=== PATIENT | male | born 1960 | race Caucasian/White ===

== ENCOUNTER 2024-07-05 12:43 | Emergency (ER) | payer OTHER ==
[2024-07-05 13:09] VITALS: TEMP 98.5
--- NOTE | 2024-07-05 14:44 | XRAY ---
Indication: Ascites. Informed consent obtained. Patient placed supine. Initial abdominal ultrasound performed for localization. Left lower abdominal wall was prepped and draped in sterile fashion. 1% lidocaine plain was used for local anesthesia. Tiny skin incision made. 5 [employer] paracentesis needle/catheter was then percutaneously inserted. Once fluid was aspirating, the outer catheter was then advanced with the inner needle removed. Catheter was then connected to a Vacutainer. Approximately 11.3 L of off-white colored fluid aspirated and was disposed of properly. Repeat sonogram demonstrates improvement with minimal residual. Catheter removed. Hemostasis achieved using digital pressure over the puncture site. Band-Aid applied over the puncture site. Postoperative instructions given. Patient return to ER. Impression: Technically successful ultrasound guided abdominal paracentesis for therapeutic purpose. No immediate complications or blood loss.
--- NOTE | 2024-07-05 14:46 | XRAY ---
Indication: Ascites. Abdominal distention. Ultrasound of abdomen demonstrates diffuse large ascites in all 4 quadrants. Paracentesis is pending.
[2024-07-05] MEDS ORDERED: Hydromorphone 1 mg/ml Injection ONE (15:00)
[2024-07-05] MEDS ORDERED: Zofran 4 MG/2 ML VIAL ONE (15:00)
[2024-07-05] MEDS: Zofran 4 MG/2 ML VIAL IV ONE (15:03)
[2024-07-05] MEDS: Hydromorphone 1 mg/ml Injection IV ONE (15:04)
[2024-07-05 15:17] LABS: Absolute Neutrophil Ct (ANC) 6.07 x10^3/uL (1.78-5.38); BASOPHIL % 0.3 % (0.2-1.2); Basophil (Absolute #) 0.02 x10^3/uL (0.01-0.08); Eosinophil % 0.1 % (0.8-7.0); Eosinophil (Absolute #) 0.01 x10^3/uL (0.04-0.54); Hematocrit 43.8 % (40.1-51.0); Hemoglobin 15.6 g/dL (13.7-17.5); IMMATURE GRAN # 0.02 x10^3u/L (0.001-0.031); IMMATURE GRAN % 0.3 % (0.001-0.429); Lymphocyte (Absolute #) 0.39 x10^3/uL (1.32-3.57); Lymphocytes % 5.8 % (21.8-53.1); Mean Cell Volume 97.6 fL (79.0-92.2); Mean Corpuscular Hemoglobin 34.7 pg (25.7-32.2); Mean Corpuscular Hgb Concent. 35.6 g/dL (32.3-36.5); Mean Platelet Volume 9.8 fL (9.4-12.4); Neutrophil % 90.5 % (34.0-67.9); Platelet Count 114 x10^3/uL (163-337); Red Blood Count 4.49 x10^6/uL (4.63-6.08); White Blood Count 6.7 x10^3/uL (4.23-9.07)
[2024-07-05 15:32] LABS: ALBUMIN 3.3 g/dL (3.5-5.0); ANION GAP 14.3 MEQ/L (5-15); BILIRUBIN,TOTAL 2.8 mg/dL (0.2-1.3); Calcium 9.5 mg/dL (8.4-10.2); Creatinine 1 0.69 mg/dL (0.66-1.25); EST GLOMERULAR FILTRATION RATE 104.6 ML/MIN; Potassium 4.7 mmol/L (3.5-5.1); Total Protein 6.8 g/dL (6.3-8.2)
[2024-07-05 16:43] LABS: Slide Review 1 YES
--- NOTE | 2024-07-05 17:02 | XRAY ---
Indication: Abdominal pain since May 2024. Cirrhosis with ascites. Status post same-day paracentesis. Multiple contiguous images obtained through the abdomen and pelvis using 80 cc Isovue 370 contrast. Comparison: None Lung bases clear. Heart not enlarged. Noncontrasted stomach and bowel loops appear nonobstructed. Colon demonstrates diffuse circumferential wall thickening either incomplete distention versus colitis. Cirrhotic liver with moderate abdominal/pelvic ascites and 14.4 cm splenomegaly. No free air. Remaining liver, gallbladder, pancreas, spleen, adrenal glands, kidneys, ureters, and bladder are unremarkable. Mild scattered aortoiliac calcifications. No AAA or pathologic retroperitoneal lymphadenopathy. Osseous structures intact with osteopenia, mild/moderate degenerative changes throughout spine, minimal dextroscoliosis centered at L1, and mild degenerative changes both hips. Incidental moderate right and small left fluid-filled inguinal hernias. Impression: 1. Diffuse colonic bowel wall thickening either incomplete distention versus colitis. 2. Chronic findings including cirrhotic liver with abdominal/pelvic ascites, splenomegaly, arteriosclerotic disease, chronic bony findings, and fluid filled bilateral inguinal hernias.
[2024-07-05] MEDS ORDERED: Levofloxacin 500MG/100ML D5W 500 MG/100 ML BAG IV ONE (17:37)
[2024-07-05] MEDS: Levofloxacin 500MG/100ML D5W 500 MG/100 ML BAG IV STA (17:38)
[2024-07-05] MEDS ORDERED: Flagyl 500 MG ONE (17:43)
[2024-07-05] MEDS: Flagyl 500 MG PO ONE (17:43)
[2024-07-05 18:07] VITALS: BP 92/64
[2024-07-05 18:12] VITALS: O2SAT 96
--- NOTE | 2024-07-05 18:12 | ERPHSYRPT ---
- History of Present Illness Time Seen by Provider: 07/05/24 14:30 Source: patient Exam Limitations: no limitations Patient Subjective Stated Complaint: C/O abdominal pain. Indicates he is scheduled for a paracentesis on 07/07/24. Triage Nursing Assessment: Patient arrived by ambulance. He is alert and oriented. Abdomen is distended and firm. Patient with s/s of pain; grimacing, moaning, restless. Timing/Duration: today Severity: mild Associated Symptoms: denies symptoms Allergies/Adverse Reactions: acetaminophen Adverse Reaction (Verified 07/05/24 15:03) Patient states he shouldn't take this due to his liver cirrohsis Home Medications: Folic Acid 1 mg [Folate 1 mg] 1 mg PO DAILY 07/05/24 [History] Furosemide 20 mg [Lasix 20 mg] 20 mg PO TID 07/05/24 [History] Lactulose [Constulose] 15 ml PO DAILY 07/05/24 [History] Midodrine HCl [Proamatine] 5 mg PO TIDWMEALS 07/05/24 [History] Hx Tetanus, Diphtheria Vaccination/Date Given: (Patient is unsure) Hx Influenza Vaccination/Date Given: No Hx Pneumococcal Vaccination/Date Given: No Immunizations Up to Date: (Patient is unsure) Travel Risk - International Travel Have you traveled outside of the country in past 3 weeks: No - Emerging Infectious Disease Are you exhibiting symptoms associated with any current EIDs: Yes Symptoms: Abdominal Pain - Review of Systems Eyes: No Symptoms Ears, Nose, & Throat: No Symptoms Respiratory: No Symptoms Cardiac: No Symptoms Abdominal/Gastrointestinal: Abdominal Pain Genitourinary Symptoms: No Symptoms Musculoskeletal: No Symptoms Skin: No Symptoms Neurological: No Symptoms Psychological: No Symptoms Endocrine: No Symptoms Hematologic/Lymphatic: No Symptoms - Past Medical History Pertinent Past Medical History: Yes Neurological History: No Pertinent History ENT History: No Pertinent History Respiratory History: No Pertinent History Endocrine Medical History: No Pertinent History Musculoskeletal History: Fractures GI Medical History: Cirrhosis Psycho-Social History: Depression - Past Surgical History Past Surgical History: Yes Other Surgical History: back surgery (2007) - Social History Smoking Status: Current every day smoker How long have you smoked: 17 y.o. Drug Use: none - Social Determinants of Health Will the patient participate in the screening: Declined to provide - Nursing Vital Signs Nursing Vital Signs: Initial Vital Signs Temperature 98.5 F 07/05/24 12:50 Pulse Rate 135 H 07/05/24 12:50 Respiratory Rate 20 07/05/24 12:50 Blood Pressure 127/87 07/05/24 12:50 O2 Sat by Pulse Oximetry 95 07/05/24 12:50 Pain Scale Pain Intensity 0 - Physical Exam General Appearance: no apparent distress Eye Exam: PERRL/EOMI Ears, Nose, Throat Exam: normal ENT inspection Neck Exam: normal inspection Respiratory Exam: normal breath sounds Cardiovascular Exam: regular rate/rhythm Gastrointestinal/Abdomen Exam: soft, tenderness (patient has mild diffuse tenderness and has no guarding or rigidity and has no peritoneal signs ) Neurologic Exam: alert, oriented x 3 Skin Exam: normal color SpO2: 96 Ordered Tests: Active Orders 24 hr Category Date Time Status IV Insertion STAT Care 07/05/24 14:45 Active ABDOMEN AND PELVIS W CONTRAST [CT] Stat Exams 07/05/24 14:45 Completed ABDOMINAL PARACENTESIS [US] Stat Exams 07/05/24 13:22 Completed Ultrasound Liver or Spleen [LIVER OR SPLEEN] [US] Stat Exams 07/05/24 13:10 Completed AMYLASE Stat Lab 07/05/24 15:09 Completed CBC W DIFF Stat Lab 07/05/24 15:09 Completed CMP Stat Lab 07/05/24 15:09 Completed ETHYL ALCOHOL Stat Lab 07/05/24 15:09 Completed LIPASE Stat Lab 07/05/24 15:09 Completed Lactic Acid Stat Lab 07/05/24 14:45 Completed Urine Triage Profile Stat Lab 07/05/24 Ordered Medication Summary Generic Name Dose Route Start Last Admin Trade Name Freq PRN Reason Stop Dose Admin Levofloxacin/Dextrose 500 mg in 100 mls @ 100 mls/hr 07/05/24 17:34 07/05/24 17:38 Levofloxacin 500mg/100ml D5w IV 07/05/24 18:33 100 mls/hr STAT STA 100 mls/hr Administration Discontinued Medications Generic Name Dose Route Start Last Admin Trade Name Freq PRN Reason Stop Dose Admin Hydromorphone HCl 1 mg 07/05/24 14:45 07/05/24 15:04 Hydromorphone 1 Mg/1ml Inj IV 07/05/24 14:46 1 mg STAT ONE Administration Hydromorphone HCl Confirm 07/05/24 15:00 Hydromorphone 1 Mg/1ml Inj Administered 07/05/24 15:01 Dose 1 mg .ROUTE .STK-MED ONE Levofloxacin/Dextrose Confirm 07/05/24 17:37 Levofloxacin 500mg/100ml D5w Administered 07/05/24 17:38 Dose 500 mg in 100 mls @ ud IV .STK-MED ONE Metronidazole 500 mg 07/05/24 17:36 07/05/24 17:43 Metronidazole 500 Mg Tablet PO 07/05/24 17:37 500 mg STAT ONE Administration Metronidazole Confirm 07/05/24 17:43 Metronidazole 500 Mg Tablet Administered 07/05/24 17:44 Dose 500 mg .ROUTE .STK-MED ONE Ondansetron HCl 4 mg 07/05/24 14:45 07/05/24 15:03 Ondansetron Hcl 4 Mg/2 Ml Vial IV 07/05/24 14:46 4 mg STAT ONE Administration Ondansetron HCl Confirm 07/05/24 15:00 Ondansetron Hcl 4 Mg/2 Ml Vial Administered 07/05/24 15:01 Dose 4 mg .ROUTE .STK-MED ONE Lab/Rad Data: Laboratory Result Diagrams 07/05/24 15:09 07/05/24 15:09 Laboratory Results 07/05/24 07/05/24 07/05/24 Range/Units 15:09 15:09 15:09 WBC 6.7 (4.23-9.07) x10^3/uL RBC 4.49 L (4.63-6.08) x10^6/uL Hgb 15.6 (13.7-17.5) g/dL Hct 43.8 (40.1-51.0) % MCV 97.6 H (79.0-92.2) fL MCH 34.7 H (25.7-32.2) pg MCHC 35.6 (32.3-36.5) g/dL RDW 13.0 (11.6-14.4) % Plt Count 114 L (163-337) x10^3/uL MPV 9.8 (9.4-12.4) fL Gran % 90.5 H (34.0-67.9) % Immature Gran % (Auto) 0.3 (0.001-0.429) % Nucleat RBC Rel Count 0.0 (0.00-0.2) % Eos # (Auto) 0.01 L (0.04-0.54) x10^3/uL Immature Gran # (Auto) 0.02 (0.001-0.031) x10^3u/L Absolute Lymphs (auto) 0.39 L (1.32-3.57) x10^3/uL Absolute Monos (auto) 0.20 L (0.30-0.82) x10^3/uL Absolute Nucleated RBC 0.00 (0.00-0.012) x10^3u/L Lymphocytes % 5.8 L (21.8-53.1) % Monocytes % 3.0 L (5.3-12.2) % Eosinophils % 0.1 L (0.8-7.0) % Basophils % 0.3 (0.2-1.2) % Absolute Granulocytes 6.07 H (1.78-5.38) x10^3/uL Basophils # 0.02 (0.01-0.08) x10^3/uL Sodium 135 (135-145) mmol/L Potassium 4.7 (3.5-5.1) mmol/L Chloride 105 (98-107) mmol/L Carbon Dioxide 20 L (22-30) mmol/L Anion Gap 14.3 (5-15) MEQ/L BUN 15 (9-20) mg/dL Creatinine 0.69 (0.66-1.25) mg/dL Estimated GFR 104.6 ML/MIN Glucose 109 H (74-106) mg/dL Lactic Acid (0.4-2.0) Calcium 9.5 (8.4-10.2) mg/dL Total Bilirubin 2.80 H (0.2-1.3) mg/dL AST 57 (17-59) U/L ALT 44 (0-50) U/L Alkaline Phosphatase 176 H (38-126) U/L Serum Total Protein 6.8 (6.3-8.2) g/dL Albumin 3.3 L (3.5-5.0) g/dL Amylase 63 (30-110) U/L Lipase 57 (23-300) U/L Ethyl Alcohol < 10 (0-10) mg/dL Slides for Path Review YES 07/05/24 Range/Units 14:45 WBC (4.23-9.07) x10^3/uL RBC (4.63-6.08) x10^6/uL Hgb (13.7-17.5) g/dL Hct (40.1-51.0) % MCV (79.0-92.2) fL MCH (25.7-32.2) pg MCHC (32.3-36.5) g/dL RDW (11.6-14.4) % Plt Count (163-337) x10^3/uL MPV (9.4-12.4) fL Gran % (34.0-67.9) % Immature Gran % (Auto) (0.001-0.429) % Nucleat RBC Rel Count (0.00-0.2) % Eos # (Auto) (0.04-0.54) x10^3/uL Immature Gran # (Auto) (0.001-0.031) x10^3u/L Absolute Lymphs (auto) (1.32-3.57) x10^3/uL Absolute Monos (auto) (0.30-0.82) x10^3/uL Absolute Nucleated RBC (0.00-0.012) x10^3u/L Lymphocytes % (21.8-53.1) % Monocytes % (5.3-12.2) % Eosinophils % (0.8-7.0) % Basophils % (0.2-1.2) % Absolute Granulocytes (1.78-5.38) x10^3/uL Basophils # (0.01-0.08) x10^3/uL Sodium (135-145) mmol/L Potassium (3.5-5.1) mmol/L Chloride (98-107) mmol/L Carbon Dioxide (22-30) mmol/L Anion Gap (5-15) MEQ/L BUN (9-20) mg/dL Creatinine (0.66-1.25) mg/dL Estimated GFR ML/MIN Glucose (74-106) mg/dL Lactic Acid 2.2 H (0.4-2.0) Calcium (8.4-10.2) mg/dL Total Bilirubin (0.2-1.3) mg/dL AST (17-59) U/L ALT (0-50) U/L Alkaline Phosphatase (38-126) U/L Serum Total Protein (6.3-8.2) g/dL Albumin (3.5-5.0) g/dL Amylase (30-110) U/L Lipase (23-300) U/L Ethyl Alcohol (0-10) mg/dL Slides for Path Review - Progress Progress Note: at this time patient was seen and evaluated for abdominal pain he informed me that he needs to have a pleurecentesis as he is scheduled to have 1 in a few days, He denies anyother complaints - he was reevaluated after his procedure and still complaining of pain - ct of the abd and pelvis was obtained - labs were obtained - he was given opiod analgesia and he feels better - he was updated with his results and informed of the need for antibiotics here and at home and the need to follow up with his primary care provider - he is to abstain from drinking alcohol 07/05/24 18:08 Medical Desision Making - Discussion of managment Reviewed:: Need for additional workup Agreed on:: need for follow-up - Departure Clinical Impression: Acute abdominal pain, Abdominal ascites, Colitis Condition: Stable Critical Care Time: No Referrals: SARAH ADORNO MD [Primary Care Provider] - Follow up/PCP as directed Instructions: Abdominal pain, Severe Abdominal Pain, Adult (DC) Additional Instructions: Keep your appointments. You have your next paracentesis scheduled for 07/12/24 at 1pm as [facility]. You are also scheduled to follow-up with Dr. Adorno on 07/13/24 at 2pm in the [place] office. Prescriptions: Metronidazole 500 mg [Flagyl 500 MG] 500 mg PO BID #14 tablet Levofloxacin [Levaquin 500 MG Tablet] 500 mg PO DAILY #7 tablet
[2024-07-05 18:21] VITALS: PULSE 112; RESP 18
== END 2024-07-05 18:59 | disposition home or self-care (01) ==
LOC: ED 12:43
DX: R10.9 Unspecified abdominal pain (principal); R18.8 Other ascites; K52.9 Noninfective gastroenteritis and colitis, unspecified; Z79.899 Other long term (current) drug therapy; Z72.0 Tobacco use
CPT/HCPCS: 36000; 36415; 49083; 74177; 76705; 80053; 82077; 82150; 83605; 83690; 85025; 96365; 96374; 96375; 99284; J1171; J1956; J2405; A9270-GY

== ENCOUNTER 2024-07-20 09:15 | Emergency (ER) | payer OTHER ==
--- NOTE | 2024-07-20 09:23 | ERPHSYRPT ---
- History of Present Illness Time Seen by Provider: 07/20/24 09:21 Source: patient Physician History: 63-year-old male presents to our ED via EMS history of alcoholic cirrhosis recurrent ascites presents to our ED with abdominal distention. Patient receives a paracentesis weekly. Patient's last paracentesis was last . His next paracentesis is scheduled for this coming in 2 days. Patient is here as he is accumulated ascitic fluid in the interim. Patient complaining of abdominal discomfort secondary to distention. No trauma no fever no nausea no vomiting no diarrhea no rash. Symptoms are mild to moderate in intensity. Patient attributes his symptoms to needing to be "drained". Patient otherwise feels well. Patient states he does not have a GI physician that he follows. Patient voices no other complaints or concerns at this time. Portions of this note were created with voice recognition technology. There may be grammatical, spelling, punctuation or sound alike errors Timing/Duration: today Severity: moderate Modifying Factors: Improves With: nothing Associated Symptoms: denies symptoms Allergies/Adverse Reactions: acetaminophen Adverse Reaction (Verified 07/05/24 15:03) Patient states he shouldn't take this due to his liver cirrohsis Home Medications: Folic Acid 1 mg [Folate 1 mg] 1 mg PO DAILY 07/05/24 [History] Furosemide 20 mg [Lasix 20 mg] 20 mg PO TID 07/05/24 [History] Lactulose [Constulose] 15 ml PO DAILY 07/05/24 [History] Midodrine HCl [Proamatine] 5 mg PO TIDWMEALS 07/05/24 [History] Hx Tetanus, Diphtheria Vaccination/Date Given: (Patient is unsure) Hx Influenza Vaccination/Date Given: No Hx Pneumococcal Vaccination/Date Given: No Travel Risk - Emerging Infectious Disease Are you exhibiting symptoms associated with any current EIDs: Yes Symptoms: Abdominal Pain - Review of Systems Constitutional: No Symptoms, No Fever, No Chills Eyes: No Symptoms Ears, Nose, & Throat: No Symptoms Respiratory: No Symptoms, No Cough, No Dyspnea Cardiac: No Symptoms, No Chest Pain, No Edema, No Syncope Abdominal/Gastrointestinal: No Symptoms, No Abdominal Pain, No Nausea, No Vomiting, No Diarrhea Genitourinary Symptoms: No Symptoms, No Dysuria Musculoskeletal: No Symptoms, No Back Pain, No Neck Pain Skin: No Symptoms, No Rash Neurological: No Symptoms, No Dizziness, No Focal Weakness, No Sensory Changes Psychological: No Symptoms Endocrine: No Symptoms Hematologic/Lymphatic: No Symptoms Immunological/Allergic: No Symptoms All Other Systems: Reviewed and Negative - Past Medical History Pertinent Past Medical History: Yes Neurological History: No Pertinent History ENT History: No Pertinent History Respiratory History: No Pertinent History Endocrine Medical History: No Pertinent History Musculoskeletal History: Fractures GI Medical History: Cirrhosis Psycho-Social History: Depression - Past Surgical History Past Surgical History: Yes Other Surgical History: back surgery (2007) - Social History Smoking Status: Current every day smoker How long have you smoked: 17 y.o. Drug Use: none - Social Determinants of Health Will the patient participate in the screening: Declined to provide - Nursing Vital Signs Nursing Vital Signs: Initial Vital Signs Temperature 98.1 F 07/20/24 09:20 Pulse Rate 120 H 07/20/24 09:20 Respiratory Rate 16 07/20/24 09:20 Blood Pressure 124/84 07/20/24 09:20 O2 Sat by Pulse Oximetry 99 07/20/24 09:20 Pain Scale Pain Intensity 0 - Physical Exam General Appearance: no apparent distress, alert Eye Exam: PERRL/EOMI, eyes nml inspection Ears, Nose, Throat Exam: normal ENT inspection, TMs normal, pharynx normal, moist mucous membranes Neck Exam: normal inspection, non-tender, supple, full range of motion Respiratory Exam: normal breath sounds, lungs clear, No respiratory distress Cardiovascular Exam: regular rate/rhythm, normal heart sounds, normal peripheral pulses Gastrointestinal/Abdomen Exam: soft, normal bowel sounds, No tenderness, No mass Back Exam: normal inspection, normal range of motion, No CVA tenderness, No vertebral tenderness Extremity Exam: normal inspection, normal range of motion, pelvis stable Neurologic Exam: alert, oriented x 3, cooperative, normal mood/affect, sensation nml, No motor deficits Skin Exam: normal color, warm, dry, No rash Lymphatic Exam: No adenopathy SpO2 Interpretation: normal SpO2: 99 O2 Delivery: Room Air - Course Nursing assessment & vital signs reviewed: Yes Ordered Tests: Active Orders 24 hr Category Date Time Status IV Insertion STAT Care 07/20/24 09:16 Active BLOOD CULTURE Stat Lab 07/20/24 13:26 Received CBC W DIFF Stat Lab 07/20/24 09:30 Completed CMP Stat Lab 07/20/24 09:30 Completed LIPASE Stat Lab 07/20/24 09:30 Completed TROPONIN Q4H Lab 07/20/24 09:30 Completed TROPONIN Q4H Lab 07/20/24 12:40 Completed UA W/RFX UR CULTURE Stat Lab 07/20/24 11:28 Completed Medication Summary Generic Name Dose Route Start Last Admin Trade Name Freq PRN Reason Stop Dose Admin Sodium Chloride 1,000 mls @ 100 mls/hr 07/20/24 13:00 07/20/24 13:39 Sodium Chloride 0.9% 1000 Ml IV 08/19/24 12:59 100 mls/hr .Q10H KOLTON Administration Discontinued Medications Generic Name Dose Route Start Last Admin Trade Name Freq PRN Reason Stop Dose Admin Morphine Sulfate 4 mg 07/20/24 10:19 07/20/24 10:25 Morphine Sulfate 4 Mg/Ml Injection IV 07/20/24 10:20 4 mg STAT ONE Administration Morphine Sulfate Confirm 07/20/24 10:23 Morphine Sulfate 4 Mg/Ml Injection Administered 07/20/24 10:24 Dose 4 mg .ROUTE .STK-MED ONE Morphine Sulfate 4 mg 07/20/24 17:56 07/20/24 18:00 Morphine Sulfate 4 Mg/Ml Injection IV 07/20/24 17:57 4 mg STAT ONE Administration Morphine Sulfate Confirm 07/20/24 17:59 Morphine Sulfate 4 Mg/Ml Injection Administered 07/20/24 18:00 Dose 4 mg .ROUTE .STK-MED ONE Ondansetron HCl 4 mg 07/20/24 10:19 07/20/24 10:25 Ondansetron Hcl 4 Mg/2 Ml Vial IV 07/20/24 10:20 4 mg STAT ONE Administration Ondansetron HCl Confirm 07/20/24 10:23 Ondansetron Hcl 4 Mg/2 Ml Vial Administered 07/20/24 10:24 Dose 4 mg .ROUTE .STK-MED ONE Lab/Rad Data: Laboratory Result Diagrams 07/20/24 09:30 07/20/24 09:30 Laboratory Results 07/20/24 07/20/24 07/20/24 Range/Units 12:40 11:28 09:30 WBC (4.23-9.07) x10^3/uL RBC (4.63-6.08) x10^6/uL Hgb (13.7-17.5) g/dL Hct (40.1-51.0) % MCV (79.0-92.2) fL MCH (25.7-32.2) pg MCHC (32.3-36.5) g/dL RDW (11.6-14.4) % Plt Count (163-337) x10^3/uL MPV (9.4-12.4) fL Gran % (34.0-67.9) % Immature Gran % (Auto) (0.001-0.429) % Nucleat RBC Rel Count (0.00-0.2) % Eos # (Auto) (0.04-0.54) x10^3/uL Immature Gran # (Auto) (0.001-0.031) x10^3u/L Absolute Lymphs (auto) (1.32-3.57) x10^3/uL Absolute Monos (auto) (0.30-0.82) x10^3/uL Absolute Nucleated RBC (0.00-0.012) x10^3u/L Lymphocytes % (21.8-53.1) % Monocytes % (5.3-12.2) % Eosinophils % (0.8-7.0) % Basophils % (0.2-1.2) % Absolute Granulocytes (1.78-5.38) x10^3/uL Basophils # (0.01-0.08) x10^3/uL Sodium (135-145) mmol/L Potassium (3.5-5.1) mmol/L Chloride (98-107) mmol/L Carbon Dioxide (22-30) mmol/L Anion Gap (5-15) MEQ/L BUN (9-20) mg/dL Creatinine (0.66-1.25) mg/dL Estimated GFR ML/MIN Glucose (74-106) mg/dL Calcium (8.4-10.2) mg/dL Total Bilirubin (0.2-1.3) mg/dL AST (17-59) U/L ALT (0-50) U/L Alkaline Phosphatase (38-126) U/L Troponin I 0.017 0.023 (0.000-0.033) ng/mL Serum Total Protein (6.3-8.2) g/dL Albumin (3.5-5.0) g/dL Lipase (23-300) U/L Urine Color Dark Yellow (Yellow) Urine Appearance Cloudy A (Clear) Urine pH 5.5 (4.6-8.0) Ur Specific [place] 1.020 (1.005-1.030) Urine Protein Trace A (Negative) Urine Glucose (UA) Negative (Negative) mg/dL Urine Ketones Negative (Negative) Urine Blood Negative (Negative) Urine Nitrite Negative (Negative) Urine Bilirubin Small A (Negative) Urine Urobilinogen 0.2 (0.2) mg/dL Ur Leukocyte Esterase Negative (Negative) U Hyaline Cast (Auto) 11-20 (0-2) /LPF Urine Microscopic RBC 0-2 (0-5) /HPF Urine Microscopic WBC 0-2 (0-5) /HPF Ur Epithelial Cells Rare (None Seen) /HPF Calcium Oxalate Crystal >100 A (None Seen) /HPF Urine Bacteria None Seen (None Seen) /HPF Urine Culture Reflexed NO (NO) 07/20/24 07/20/24 Range/Units 09:30 09:30 WBC 6.7 (4.23-9.07) x10^3/uL RBC 4.71 (4.63-6.08) x10^6/uL Hgb 16.1 (13.7-17.5) g/dL Hct 46.9 (40.1-51.0) % MCV 99.6 H (79.0-92.2) fL MCH 34.2 H (25.7-32.2) pg MCHC 34.3 (32.3-36.5) g/dL RDW 13.7 (11.6-14.4) % Plt Count 130 L (163-337) x10^3/uL MPV 8.9 L (9.4-12.4) fL Gran % 81.9 H (34.0-67.9) % Immature Gran % (Auto) 0.6 H (0.001-0.429) % Nucleat RBC Rel Count 0.0 (0.00-0.2) % Eos # (Auto) 0.09 (0.04-0.54) x10^3/uL Immature Gran # (Auto) 0.04 H (0.001-0.031) x10^3u/L Absolute Lymphs (auto) 0.73 L (1.32-3.57) x10^3/uL Absolute Monos (auto) 0.35 (0.30-0.82) x10^3/uL Absolute Nucleated RBC 0.00 (0.00-0.012) x10^3u/L Lymphocytes % 10.9 L (21.8-53.1) % Monocytes % 5.2 L (5.3-12.2) % Eosinophils % 1.3 (0.8-7.0) % Basophils % 0.1 L (0.2-1.2) % Absolute Granulocytes 5.48 H (1.78-5.38) x10^3/uL Basophils # 0.01 (0.01-0.08) x10^3/uL Sodium 126 L (135-145) mmol/L Potassium 5.1 (3.5-5.1) mmol/L Chloride 102 (98-107) mmol/L Carbon Dioxide 15 L* (22-30) mmol/L Anion Gap 14.6 (5-15) MEQ/L BUN 43 H (9-20) mg/dL Creatinine 0.91 (0.66-1.25) mg/dL Estimated GFR 95.3 ML/MIN Glucose 115 H (74-106) mg/dL Calcium 9.6 (8.4-10.2) mg/dL Total Bilirubin 2.20 H (0.2-1.3) mg/dL AST 101 H (17-59) U/L ALT 58 H (0-50) U/L Alkaline Phosphatase 245 H (38-126) U/L Troponin I (0.000-0.033) ng/mL Serum Total Protein 6.9 (6.3-8.2) g/dL Albumin 3.3 L (3.5-5.0) g/dL Lipase 311 H (23-300) U/L Urine Color (Yellow) Urine Appearance (Clear) Urine pH (4.6-8.0) Ur Specific [place] (1.005-1.030) Urine Protein (Negative) Urine Glucose (UA) (Negative) mg/dL Urine Ketones (Negative) Urine Blood (Negative) Urine Nitrite (Negative) Urine Bilirubin (Negative) Urine Urobilinogen (0.2) mg/dL Ur Leukocyte Esterase (Negative) U Hyaline Cast (Auto) (0-2) /LPF Urine Microscopic RBC (0-5) /HPF Urine Microscopic WBC (0-5) /HPF Ur Epithelial Cells (None Seen) /HPF Calcium Oxalate Crystal (None Seen) /HPF Urine Bacteria (None Seen) /HPF Urine Culture Reflexed (NO) - Progress Progress: improved Progress Note: I spoke to patient's primary care physician who advises transferring patient to higher level of care. I spoke to Dr. Mendez at12:20p. Spoke to Dr. Kahn 12:43pm from [facility] who declined transfer on the basis of bed availability. However Dr. Kahn feels patient requires a GI specialist. 07/20/24 11:[address] Logan GI specialist at [facility] who would accept consultation at 1:23 PM. We are waiting return call from hospitalist for transfer. 07/20/24 13:22 Spoke to hospitalist at [facility] who accepts transfer at 1:40 PM 07/20/24 13:48 07/20/24 13:58 Patient reassessed. He is resting comfortably. No active pain. Patient tolerated clear liquids well. Transit care available for transport. 63-year-old male history of alcoholic liver cirrhosis with ascites. Presents to our ED for evaluation of abdominal distention. Primary care doctor requested transfer to higher level of care. Vital stable. Patient agrees to transfer to [facility] for further evaluation and treatment. Complexity of problem addressed is moderate acute complicated. No critical care time. Complex of data reviewed and analyzed is extensive. Test ordered chest reviewed results analyzed and correlated clinically with history and physical exam. Management discussed with primary care doctor, convertible top installer from , GI specialist from [place] as well as [place] hospitalist. Risk of complication and or risk of morbidity/mortality of patient management high. Patient will be transferred to higher level of care. Vital stable. Time spent to transfer patient is approximately 15 minutes. Plan of care established for shared decision making. No social determinants felt present to impede follow-up. Portions of this note were created with voice recognition technology. There may be grammatical, spelling, punctuation or sound alike errors 07/20/24 19:11 Counseled pt/family regarding: lab results, diagnosis - Departure Departure Disposition: Observation Clinical Impression: Ascites due to alcoholic cirrhosis, Abdominal pain, Total bilirubin, elevated, Elevated alkaline phosphatase level, Transaminitis Condition: Stable Critical Care Time: No Referrals: SARAH ADORNO MD [Primary Care Provider] - Follow up/PCP as directed Additional Instructions: Discharge/Care Plan MARANDA ANNA was seen on 07/20/24 in the Emergency Room. The patient was counseled regarding Diagnosis,Lab results, Imaging studies, need for follow up and when to return to the Emergency Room. Prescriptions given: Discharge Note I have spoken with the patient and/or caregivers. I have explained the patient's condition, diagnosis and treatment plan based on the information available to me at this time. I have answered the patient's and/or caregiver's questions and addressed any concerns. The patient and/or caregivers have as good understanding of the patient's diagnosis, condition and treatment plan as can be expected at this point. The vital signs have been stable. The patient's condition is stable and appropriate for discharge from the emergency department. The patient will pursue further outpatient evaluation with the primary care physician or other designated or consulting physician as outlined in the discharge instructions. The patient and/or caregivers are agreeable to this plan of care and follow-up instructions have been explained in detail. The patient and/or caregivers have received these instruction. The patient/and or caregivers are aware that any significant change in condition or worsening of symptoms should prompt an immediate return to this or the closest emergency department or call 911.
[2024-07-20 09:26] VITALS: TEMP 98.1
[2024-07-20 09:40] LABS: Absolute Neutrophil Ct (ANC) 5.48 x10^3/uL (1.78-5.38); BASOPHIL % 0.1 % (0.2-1.2); Basophil (Absolute #) 0.01 x10^3/uL (0.01-0.08); Eosinophil % 1.3 % (0.8-7.0); Eosinophil (Absolute #) 0.09 x10^3/uL (0.04-0.54); Hematocrit 46.9 % (40.1-51.0); Hemoglobin 16.1 g/dL (13.7-17.5); IMMATURE GRAN # 0.04 x10^3u/L (0.001-0.031); IMMATURE GRAN % 0.6 % (0.001-0.429); Lymphocyte (Absolute #) 0.73 x10^3/uL (1.32-3.57); Lymphocytes % 10.9 % (21.8-53.1); Mean Cell Volume 99.6 fL (79.0-92.2); Mean Corpuscular Hemoglobin 34.2 pg (25.7-32.2); Mean Corpuscular Hgb Concent. 34.3 g/dL (32.3-36.5); Mean Platelet Volume 8.9 fL (9.4-12.4); Monocyte (Absolute #) 0.35 x10^3/uL (0.30-0.82); Monocytes % 5.2 % (5.3-12.2); Neutrophil % 81.9 % (34.0-67.9); Platelet Count 130 x10^3/uL (163-337); Red Blood Count 4.71 x10^6/uL (4.63-6.08); Red Cell Distribution Width 13.7 % (11.6-14.4); White Blood Count 6.7 x10^3/uL (4.23-9.07)
[2024-07-20 10:00] LABS: ALBUMIN 3.3 g/dL (3.5-5.0); ANION GAP 14.6 MEQ/L (5-15); BILIRUBIN,TOTAL 2.2 mg/dL (0.2-1.3); Calcium 9.6 mg/dL (8.4-10.2); Creatinine 1 0.91 mg/dL (0.66-1.25); EST GLOMERULAR FILTRATION RATE 95.3 ML/MIN; Potassium 5.1 mmol/L (3.5-5.1); Total Protein 6.9 g/dL (6.3-8.2)
[2024-07-20] MEDS ORDERED: MORPHINE SULFATE 4 MG INJ ONE ×2 (10:23→17:59)
[2024-07-20] MEDS ORDERED: Zofran 4 MG/2 ML VIAL ONE (10:23)
[2024-07-20] MEDS: Zofran 4 MG/2 ML VIAL IV ONE (10:25)
[2024-07-20] MEDS: MORPHINE SULFATE 4 MG INJ IV ONE ×2 (10:25→18:00)
[2024-07-20 12:26] LABS: Appearance Cloudy (Clear); Bacteria None Seen /HPF (None Seen); Bilirubin Small (Negative); Blood Negative (Negative); Glucose, Urine Negative (Negative); Ketones Negative (Negative); Leukocyte Esterase Negative (Negative); Nitrite Negative (Negative); Ph 5.5 (4.6-8.0); Protein,Urine Dip Trace (Negative); Urobilinogen 0.2 mg/dL (0.2); WBC 0-2 /HPF (0-5)
[2024-07-20 12:47] LABS: Epithelial Cells Rare /HPF (None Seen); RBC 0-2 /HPF (0-5)
[2024-07-20 12:48] LABS: Calcium Oxalate Crystals >100 /HPF (None Seen)
[2024-07-20] MEDS: Sodium Chloride 0.9% 1000 ML 1,000 ML IV SCH (13:39)
[2024-07-20] MEDS ORDERED: Sodium Chloride 0.9% 1000 ML 1,000 ML ONE (13:39)
[2024-07-20 18:43] VITALS: RESP 18
[2024-07-20 19:04] VITALS: BP 132/98; PULSE 101
[2024-07-20 19:14] VITALS: O2SAT 99
== END 2024-07-20 19:25 | disposition short-term general hospital (02) ==
LOC: ED 09:15
DX: K70.31 Alcoholic cirrhosis of liver with ascites (principal); R10.9 Unspecified abdominal pain; E80.6 Other disorders of bilirubin metabolism; R74.8 Abnormal levels of other serum enzymes; R74.01 Elevation of levels of liver transaminase levels; Z79.899 Other long term (current) drug therapy; Z72.0 Tobacco use
CPT/HCPCS: 36000; 36415; 80053; 81001; 83690; 84484; 85025; 87040; 96374; 96375; 96376; 99285; J2270; J2405

== ENCOUNTER 2024-10-30 15:18 | Emergency (ER) | payer OTHER ==
--- NOTE | 2024-10-30 15:26 | ERPHSYRPT ---
- History of Present Illness Time Seen by Provider: 10/30/24 15:35 Source: patient Exam Limitations: no limitations Physician History: This is a 64-year-old white male patient arrives by private vehicle. His primary care provider is Dr. Adorno. The patient has soreness of his right first toe. He does not recall specific injury. He thinks there may be an ingrown toenail. Patient has history of cirrhosis and depression. He is a daily smoker of tobacco cigarettes. Method of Injury: unknown Severity of Pain-Max: mild Severity of Pain-Current: mild Lower Extremities Pain: 1st toe: right Modifying Factors: Improves With: movement Associated Symptoms: none Allergies/Adverse Reactions: acetaminophen Adverse Reaction (Verified 10/30/24 15:50) Patient states he shouldn't take this due to his liver cirrohsis Home Medications: Folic Acid 1 mg [Folate 1 mg] 1 mg PO DAILY 07/05/24 [History] Furosemide 20 mg [Lasix 20 mg] 20 mg PO TID 07/05/24 [History] Lactulose [Constulose] 15 ml PO DAILY 07/05/24 [History] Midodrine HCl [Proamatine] 5 mg PO TIDWMEALS 07/05/24 [History] Hx Tetanus, Diphtheria Vaccination/Date Given: (Patient is unsure) Hx Influenza Vaccination/Date Given: No Hx Pneumococcal Vaccination/Date Given: No Travel Risk - International Travel Have you traveled outside of the country in past 3 weeks: No - Emerging Infectious Disease Are you exhibiting symptoms associated with any current EIDs: Yes Symptoms: Abdominal Pain - Review of Systems Constitutional: No Symptoms Eyes: No Symptoms Ears, Nose, & Throat: No Symptoms Respiratory: No Symptoms Cardiac: No Symptoms Abdominal/Gastrointestinal: No Symptoms Genitourinary Symptoms: No Symptoms Musculoskeletal: Other (Right first toe pain) Skin: Other (Dry, red, purple skin of both feet) Neurological: No Symptoms Psychological: No Symptoms Endocrine: No Symptoms Hematologic/Lymphatic: No Symptoms Immunological/Allergic: No Symptoms All Other Systems: Reviewed and Negative - Past Medical History Pertinent Past Medical History: Yes Neurological History: No Pertinent History ENT History: No Pertinent History Respiratory History: No Pertinent History Endocrine Medical History: No Pertinent History Musculoskeletal History: Fractures GI Medical History: Cirrhosis Psycho-Social History: Depression - Past Surgical History Past Surgical History: Yes Other Surgical History: back surgery (2007) - Social History Smoking Status: Current every day smoker How long have you smoked: 17 y.o. Drug Use: none - Social Determinants of Health Will the patient participate in the screening: Declined to provide - Nursing Vital Signs Nursing Vital Signs: Initial Vital Signs Temperature 97 F 10/30/24 15:33 Pulse Rate 64 10/30/24 15:33 Respiratory Rate 18 10/30/24 15:33 Blood Pressure 95/57 10/30/24 15:33 O2 Sat by Pulse Oximetry 97 10/30/24 15:33 Pain Scale Pain Intensity 6 - Physical Exam General Appearance: no apparent distress, alert, thin Eyes, Ears, Nose, Throat Exam: normal ENT inspection, moist mucous membranes Neck Exam: normal inspection, non-tender, supple, full range of motion Cardiovascular/Respiratory Exam: chest non-tender, no respiratory distress Gastrointestinal/Abdominal Exam: non-tender Back Exam: normal inspection, normal range of motion, No CVA tenderness, No vertebral tenderness Hips Exam: bilateral: non-tender, normal inspection, normal range of motion, no evidence of injury Legs Exam: bilateral leg: non-tender, normal inspection, normal range of motion, no evidence of injury Knees Exam: bilateral knee: non-tender, normal inspection, normal range of motion, no evidence of injury Ankle Exam: bilateral ankle: non-tender, normal inspection, normal range of motion, no evidence of injury Foot Exam: right foot: bone tenderness (Right first toe), soft tissue tenderness (Right first toe proximal to toenail), other (Patient has dry, cracked, ruborous and cyanotic bilateral feet), left foot: non-tender Neuro/Tendon Exam: normal sensation, normal motor functions, normal tendon functions, responds to pain Mental Status Exam: alert, oriented x 3, cooperative SpO2 Interpretation: normal O2 Delivery: Room Air - Course Nursing assessment & vital signs reviewed: Yes Ordered Tests: Active Orders 24 hr Category Date Time Status FOOT (MINIMUM 3 VIEWS) Stat Exams 10/30/24 15:48 Taken - Progress Progress: unchanged, pain not gone completely Progress Note: 10/30/24 16:10 My medical decision making in the assignment of low complexity of this patient's medical issue today is based on review of the patient's past medical history, review of the patient's medication list, review patient drug allergy list, history present illness and physical findings on examination. The workup in this patient includes a Doppler of bilateral feet and x-ray of the patient's right foot. The patient has strong dopplerable pedal pulses bilaterally. Differential diagnosis includes but is not limited to dry cracked skin of both feet, fracture/dislocation right foot first toe, venous stasis disease 10/30/24 16:25 I interpreted the patient's preliminary report of his right foot x-ray. I do not appreciate an acute fracture or dislocation. Counseled pt/family regarding: diagnosis, need for follow-up, rad results Medical Desision Making - Diagnostic Testing Diagnostic test were ordered, analyzed, and reviewed by me: Yes Radiological Interpretation: Interpreted by me, Teleradiologist Report - Risk of complications The pt has a mod risk of morbidity or mortality based on: Need for prescription drug management - Departure Departure Disposition: Home Clinical Impression: Dry skin, Cracked skin on feet Condition: Stable Critical Care Time: No Referrals: SARAH ADORNO MD [Primary Care Provider] - Follow up/PCP as directed MICHAEL ANTON DPM [ACTIVE STAFF] - Follow up/PCP as directed Additional Instructions: Make sure you soak your feet twice a day in warm soapy water and scrub the flaky skin off your feet and ankles. After each washing and scrubbing, dry well then apply unscented moisturizing lotion. Including between the toes and on the bottom of the feet. Follow-up with the podiatry clinic, by phone, to make arrangements for further evaluation management, take your medications as prescribed. Prescriptions: Ciprofloxacin [Cipro 500 MG] 500 mg PO BID #10 tablet
[2024-10-30 15:50] VITALS: BP 95/57; PULSE 64; RESP 18; TEMP 97; O2SAT 97
--- NOTE | 2024-10-30 21:03 | XRAY ---
Indication: Great toe pain. Comparison: None 3 nonweightbearing views right foot demonstrates mild distal great toe soft tissue swelling. No other bony, articular, or soft tissue abnormalities.
== END 2024-10-30 16:50 | disposition home or self-care (01) ==
LOC: ED 15:18
DX: L85.3 Xerosis cutis (principal); M79.674 Pain in right toe(s); Z79.899 Other long term (current) drug therapy; Z72.0 Tobacco use
CPT/HCPCS: 73630; 99282; 99283